=== PATIENT | male | born 1965 | race Hispanic/Latino ===

== ENCOUNTER 2016-12-06 21:11 | Emergency (ER) | payer SELFPAY ==
[2016-12-06 22:05] LABS: HEMATOCRIT 30.8 % (39.0-50.0); HEMOGLOBIN 10.4 g/dl (14.0-18.0); IMMATURE GRANULOCYTES 1.2 % (0.0-1.0); MEAN CELL VOLUME 97.5 fL CALC (80.0-100.0); MEAN CORPUSCULAR HGB 32.9 pG CALC (26.0-32.0); MEAN CORPUSCULAR HGB CONC 33.8 g/L CALC (32.0-36.0); NEUT# 4.47 thou/uL (1.82-7.42); RED BLOOD COUNT 3.16 mill/uL (4.70-6.10); RED CELL DISTRI WIDTH 13.6 % (11.5-15.5)
[2016-12-06 22:10] LABS: ALBUMIN 5.3 g/dL (3.2-5.0); ALKALINE PHOSPHATASE 54 u/l (38-126); ANION GAP 22 (6-22 (CALC)); BILIRUBIN, TOTAL 0.6 mg/dL (0.0-1.4); BUN 34 mg/dL (9-20); BUN/CREATININE RATIO 43 (12-20 (CALC)); CALCIUM 10.2 mg/dL (8.4-10.2); CARBON DIOXIDE 25 mmol/l (22-30); CHLORIDE 96 mmol/l (95-108); CREATININE 0.8 mg/dL (0.7-1.3); GFR > 60 ML/MIN (>=60 (CALC)); GFR FOR AFR.AMER. > 60 ML/MIN (>=60 (CALC)); GLUCOSE 117 mg/dL (75-110); POTASSIUM 4.2 mmol/l (3.5-5.1); SGOT/AST 65 u/l (17-59); SGPT/ALT 91 u/l (21-72); SODIUM 138 mmol/l (137-146)
[2016-12-06 22:14] LABS: PROTHROMBIN TIME 10.7 SECONDS (9.0-12.5)
[2016-12-07] MEDS ORDERED: CIPROFLOXACN500 MG PO (00:44)
[2016-12-07 01:08] VITALS: BP 113/66
== END 2016-12-07 01:08 | disposition home or self-care (01) | DRG 151 ==
LOC: ED 21:11
PROVIDERS: Emergency Medicine
PROC: 2Y41X5Z Packing of Nasal Region using Packing Material (ICD-10-PCS; principal; 2016-12-06)
DX: R04.0 Epistaxis (principal); R50.9 Fever, unspecified

== ENCOUNTER 2019-08-21 | Emergency (ER) | payer SELFPAY ==
[~2019-08-21] MED LIST: CIPROFLOXACN500 MG PO
[2019-08-21] MEDS ORDERED: AMOXICILLIN500 M2 PO ×2 (19:47)
== END 2019-08-21 20:25 | disposition home or self-care (01) | DRG 151 ==
PROC: 2Y41X5Z Packing of Nasal Region using Packing Material (ICD-10-PCS; principal; 2019-08-21)
DX: R04.0 Epistaxis (principal); F17.200 Nicotine dependence, unspecified, uncomplicated

== ENCOUNTER 2019-08-25 18:46 | Emergency (ER) | payer SELFPAY ==
[~2019-08-25 18:46] MED LIST changes: +AMOXICILLIN500 M2 PO
[2019-08-25 19:53] VITALS: BP 129/83
== END 2019-08-25 20:10 | disposition home or self-care (01) | DRG 951 ==
LOC: ED 18:46
DX: Z48.00 Encounter for change or removal of nonsurgical wound dressing (principal); F17.210 Nicotine dependence, cigarettes, uncomplicated

== ENCOUNTER 2020-02-13 08:08 | Emergency (ER) | payer SELFPAY ==
[~2020-02-13] VITALS: Ht 162.6 cm; Wt 63.0 kg
[2020-02-13] MEDS ORDERED: HYDROCO/APAP1 TA9 PO (12:13)
[2020-02-13 12:35] VITALS: BP 129/74
== END 2020-02-13 12:35 | disposition home or self-care (01) | DRG 563 ==
LOC: ED 08:08
PROC: 2W3RX1Z Immobilization of Left Lower Leg using Splint (ICD-10-PCS; principal; 2020-02-13)
DX: S82.62XA Displaced fracture of lateral malleolus of left fibula, initial encounter for closed fracture (principal); F17.210 Nicotine dependence, cigarettes, uncomplicated; W14.XXXA Fall from tree, initial encounter; Y93.H2 Activity, gardening and landscaping; Y92.89 Other specified places as the place of occurrence of the external cause; Y99.0 Civilian activity done for income or pay

== ENCOUNTER 2020-12-17 13:27 | Emergency (ER) | payer SELFPAY ==
[~2020-12-17 13:27] MED LIST changes: +HYDROCO/APAP1 TA9 PO
[2020-12-17] MEDS ORDERED: KEFLEX500 MG PO (14:33)
[2020-12-17 14:45] VITALS: BP 156/85
== END 2020-12-17 14:45 | disposition home or self-care (01) | DRG 605 ==
LOC: ED 13:27
PROC: 0HQFXZZ Repair Right Hand Skin, External Approach (ICD-10-PCS; principal; 2020-12-17)
DX: S61.011A Laceration without foreign body of right thumb without damage to nail, initial encounter (principal); F17.210 Nicotine dependence, cigarettes, uncomplicated; W45.8XXA Other foreign body or object entering through skin, initial encounter; Y93.89 Activity, other specified

== ENCOUNTER 2020-12-29 08:36 | Emergency (ER) | payer SELFPAY ==
[~2020-12-29] VITALS: Ht 162.6 cm; Wt 70.0 kg
[~2020-12-29 08:36] MED LIST changes: +KEFLEX500 MG PO
[2020-12-29 09:12] VITALS: BP 126/74
== END 2020-12-29 09:15 | disposition home or self-care (01) | DRG 950 ==
LOC: ED 08:36
DX: S61.411D Laceration without foreign body of right hand, subsequent encounter (principal); X58.XXXD Exposure to other specified factors, subsequent encounter; F17.200 Nicotine dependence, unspecified, uncomplicated